=== PATIENT | female | born 1985 | race Caucasian/White ===

== ENCOUNTER 2022-03-04 20:17 | Emergency (ER) | payer MEDICAID ==
[~2022-03-04] VITALS: Ht 162.6 cm; Wt 99.8 kg
[2022-03-04 20:39] VITALS: BP 151/60
[2022-03-04] MEDS ORDERED: IBUPROFEN 400 MG TAB PO ONE (20:50)
[2022-03-04] MEDS ORDERED: ACET-2619 PO ×2 (22:53→22:54)
[2022-03-04] MEDS ORDERED: ROB PO ×2 (22:53→22:54)
[2022-03-04] MEDS ORDERED: ALBU0.0912 IH ×2 (22:53→22:54)
[2022-03-04 23:28] VITALS: BP 151/60
--- NOTE | 2022-03-04 23:28 | NUR ---
Patient discharged with v/s stable. Written and verbal after care instructions given and explained. Patient alert, oriented and verbalized understanding of instructions. Ambulatory with steady gait. All questions addressed prior to discharge. ID band removed. Patient advised to follow up with PMD. Rx of TYLENOL, ALBUTEROL, ROBUTUSSIN given. Patient educated on indication of medication including possible reaction and side effects. Opportunity to ask questions provided and answered.
== END 2022-03-04 23:28 | disposition home or self-care (01) ==
LOC: MED 20:17
DX: J20.9 Acute bronchitis, unspecified (principal); Z20.822 Contact with and (suspected) exposure to COVID-19; J06.9 Acute upper respiratory infection, unspecified; I10 Essential (primary) hypertension; F17.200 Nicotine dependence, unspecified, uncomplicated; Z71.6 Tobacco abuse counseling; Z72.89 Other problems related to lifestyle; Z79.899 Other long term (current) drug therapy
CPT/HCPCS: 99283

== ENCOUNTER 2023-11-19 20:10 | Emergency (ER) | payer MEDICAID ==
[~2023-11-19] VITALS: Ht 162.6 cm; Wt 105.7 kg
[~2023-11-19 20:10] MED LIST: ACET-2619 PO; ALBU0.0912 IH; ROB PO
[2023-11-19 20:31] VITALS: BP 145/81; PULSE 104; RESP 18; TEMP 98; O2SAT 98
== END 2023-11-19 23:57 | disposition left against medical advice (07) ==
LOC: MED 20:10
DX: R03.0 Elevated blood-pressure reading, without diagnosis of hypertension (principal); Z53.21 Procedure and treatment not carried out due to patient leaving prior to being seen by health care provider